=== PATIENT | male | born 1950 | race Caucasian/White ===

== ENCOUNTER → 2017-10-29 | Outpatient (CLI) | payer OTHER ==
[~2017-10-29] MED LIST: APIX5TAB PO; ATOR80TA PO; CLOP75TA52 PO; GABA100C PO; INSU100C SQ-INSULIN; INSU300I SQ; IRBE1TAB13 PO; METF850T2 PO; POTA10TA31 PO; REGADENOSON 0.4 MG/5 ML SYRINGE ONE
== END | disposition home or self-care (01) ==
LOC: CFH 07:32
PROVIDERS: ATTEND Internal Medicine Cardiovascular Disease
DX: I25.9 Chronic ischemic heart disease, unspecified (principal); I25.10 Atherosclerotic heart disease of native coronary artery without angina pectoris
CPT/HCPCS: 78452; 93017; A9502; J2785